=== PATIENT | female | born 1950 | race Caucasian/White ===

== ENCOUNTER → 2021-04-26 13:26 | Outpatient (CLI) | payer MEDICARE, SELFPAY ==
--- NOTE | 2021-04-26 13:47 | US_ITS ---
STUDY: RENAL ULTRASOUND - COMPLETE REASON FOR EXAM: Female, 70 years old. Flank pain and fever TECHNIQUE: Ultrasound evaluation of the kidneys was performed with real-time and static yoo-scale imaging. COMPARISON: None. FINDINGS: RIGHT KIDNEY: Normal location of the right kidney, which is normal in size. The right kidney measures 9.8 x 4.8 x 5.0 cm. There is a normal cortex of the right kidney. The renal cortex measures 1.1 cm. There is no right renal mass or cyst. There are no right renal calculi. There is no right hydronephrosis. DISTAL RIGHT URETER: There is non-visualization of the distal right ureter. There is no demonstrated right ureterovesical junction calculus. There is a visualized right ureteral jet. LEFT KIDNEY: Normal location of the left kidney, which is normal in size. The left kidney measures 10.5 x 4.8 x 5.2 cm. There is a normal cortex of the left kidney. The renal cortex measures 1.3 cm. There is a simple 0.9 cm cyst. There are no left renal calculi. There is no left hydronephrosis. DISTAL LEFT URETER: There is non-visualization of the distal left ureter. There is no demonstrated left ureterovesical junction calculus. There is a visualized left ureteral jet. AORTA: There is no elongation or tortuosity of the abdominal aorta. I.V.C.: The IVC is patent. BLADDER: The bladder is sonographically normal with estimated capacity of 449.19 mL US/Kidney and Bladder IMPRESSION: No suspicious sonographic findings, simple left renal cyst. No specific follow-up needed Electronically Signed: Mike Del Toro MD at 10:49 EDT , Service support ,
== END ==
PROVIDERS: PCP Family Medicine; Referring Provider Urology; Visit Provider Urology
DX: N39.0 Urinary tract infection, site not specified (principal)
CPT/HCPCS: 76770

== ENCOUNTER → 2021-07-16 | Outpatient (CLI) | payer MEDICARE, SELFPAY | END | disposition home or self-care (01) | PROVIDERS: PCP Family Medicine; Referring Provider Urology; Visit Provider Urology | DX: N39.0 Urinary tract infection, site not specified (principal) | CPT/HCPCS: 87086 ==

== ENCOUNTER 2021-07-27 07:04 | Day surgery (SDC) | payer MEDICARE, SELFPAY ==
--- NOTE | 2021-07-26 10:50 | EKG12_ITS ---
Test Reason : PRE OP Blood Pressure : / mmHG Vent. Rate : 057 BPM Atrial Rate : 057 BPM P-R Int : 204 ms QRS Dur : 128 ms QT Int : 432 ms P-R-T Axes : 070 108 048 degrees QTc Int : 420 ms Sinus bradycardia Right bundle branch block Abnormal ECG Confirmed by PHOEBE MCDONOUGH, LAILA ([id number]), film editor supervisor ALEXANDER CASTRO ([id number]) on 07/27/2021 9:26:55 AM Referred By: Maria C Adair Confirmed By:LAILA SANDHU MD
[2021-07-26 11:58] LABS: Hematocrit 39.4 % (37-47); Mean Corpuscular Hgb 31.1 pg (27.0-32.0); Mean Corpuscular Volume 94.3 fL (81-99); Mean Platelet Vol. 10.2 fl (6.2-12.0); Platelet Count 284 K/mm3 (150-450); RBC Distribution Width CV 13.3 % (11.6-14.6); RBC Distribution Width SD 45.5 fl (35.1-43.9); Red Blood Count 4.18 M/mm3 (4.2-5.4); White Blood Count 5.3 K/mm3 (4.4-11.0)
[2021-07-26 12:16] LABS: Anion Gap 4 (5-15); BUN 12 mg/dL (7-18); BUN/Creat Ratio 13.9 RATIO (10-20); Chloride 104 mmol/L (98-107); Creatinine, Serum 0.86 mg/dL (0.55-1.02); EST Glomerular Filtration Rate 69 mL/min (>60); Est Glom Filt Rate - Afr Amer 84 mL/min (>60); Glucose 135 mg/dL (74-106); Potassium 3.9 mmol/L (3.5-5.1); Sodium Level 139 mmol/L (136-145)
[2021-07-26 12:21] LABS: Hemoglobin A1c 6.4 % (3.8-5.6)
[2021-07-27] VITALS (7 sets, daily range): BP systolic 124–157; BP diastolic 67–76; PULSE 57–62; RESP 16; TEMP 36.2–36.7; O2SAT 97–100; BMI 34.3
[2021-07-27] MEDS: Lactated Ringers 1,000 ML 100 ML IV (07:47)
--- NOTE | 2021-07-27 08:17 | PCM.HP.STD ---
HPI - General HPI Narrative BHARATHI PAIGE, is a 70 F who presents for urethral dilation and cystoscopy for evaluation of urinary tract infections and treatment of her urethral stricture. Informed consent was obtained. [facility] Medical History (Updated 07/27/21 @ 08:[address] Maria C Adair MD) Anemia Anxiety Back pain Chest pain CPAP (continuous positive airway pressure) dependence Diabetes Dietary restriction Gastric reflux History of edema History of renal disease History of stress test Hypertension Migraine headache Non-smoker Other urethral stricture, female Rheumatoid arthritis Urinary tract infection Wears glasses Home Medications acetaminophen [Tylenol] 650 mg PO Q6H PRN 07/20/21 [History Last Taken 07/27/21] ascorbic acid (vitamin C) [Vitamin C] 500 mg PO DAILY 07/20/21 [History Last Taken 07/27/21] hydrochlorothiazide 25 mg PO DAILY 07/20/21 [History Last Taken 07/27/21] lactobacillus combination no.4 [Probiotic] 3,000 mmu cells PO DAILY 07/20/21 [History Last Taken 07/27/21] leucovorin calcium 5 mg PO TU 07/20/21 [History Last Taken 07/06/21] loratadine 10 mg PO DAILY 07/20/21 [History Last Taken 07/27/21] methotrexate sodium [Methotrexate (Anti-Rheumatic)] 20 mg PO MO 07/20/21 [History Last Taken 07/05/21] metoprolol tartrate 25 mg PO BID 07/20/21 [History Last Taken 07/27/21] multivitamin 1 cap PO DAILY 07/20/21 [History Last Taken 07/27/21] omeprazole 20 mg PO BID 07/20/21 [History Last Taken 07/27/21] trazodone 50 mg PO QHS 07/20/21 [History Last Taken 07/27/21] vitamin B complex 1 cap PO DAILY 07/20/21 [History Last Taken 07/27/21] Allergy/AdvReac Type Severity Reaction Status Date / Time cephalexin Allergy Hives Verified 07/20/21 14:18 levofloxacin [From Levaquin] Allergy Itching Verified 07/20/21 14:18 oats Allergy Hives Verified 07/20/21 14:18 sucralfate [From Carafate] Allergy Hives Verified 07/20/21 14:18 sulfamethoxazole Allergy Itching Verified 07/20/21 14:18 [From Bactrim] trimethoprim [From Bactrim] Allergy Itching Verified 07/20/21 14:18 ciprofloxacin [From Cipro] AdvReac Diarrhea Verified 07/20/21 14:18 lisinopril [From Zestril] AdvReac COUGH Verified 07/20/21 14:18 Surgical History History of carpal tunnel surgery of right wrist History of esophagogastroduodenoscopy (EGD) History of partial hysterectomy Hx laparoscopic cholecystectomy Hx of colonoscopy Hx of hysterectomy Hx of right knee surgery Social History Smoking Status: Never smoker ROS Constitutional Constitutional: Denies anorexia, change in weight, chills, fatigue, fever(s), frequent falls or weakness Eyes Eyes: Denies change in vision ENT HEENT: Denies abnormal hearing, dizziness or dysphagia Cardiovascular Cardiovascular: Denies abdominal pain, chest pain, dyspnea, nausea or vomiting Respiratory/Chest Respiratory/Chest: Denies change in mental status, cough or dyspnea Gastrointestinal Gastrointestinal: Denies abdominal pain, anorexia, change in bowel habits, dysphagia, vomiting or weight changes Genitourinary Genitourinary: Reports urinary frequency and urinary urgency Musculoskeletal Musculoskeletal: Reports back pain and joint pain Integumentary Integumentary: Denies changing lesions, pruritus or rash Neurologic Neurologic: Denies abnormal movements or abnormal speech Psychiatric Psychiatric: Denies behavioral changes or cognitive impairment Endocrine Endocrinology: Reports systems reviewed and no addt'l complaints, except as documented Hematologic/Lymphatic Hematologic/Lymphatic: Reports systems reviewed and no addt'l complaints, except as documented Allergic/Immunologic Allergic/Immunologic: Reports systems reviewed and no addt'l complaints, except as documented Vital Signs Vital Signs Vital Signs: 07/27/21 07:20 Temperature 97.5 F L Temperature Source Temporal Pulse Rate 58 L Respiratory Rate 16 Respiratory Pattern Normal Blood Pressure 124/70 H Blood Pressure Mean 88 Blood Pressure Source Monitor Blood Pressure Position Sitting Blood Pressure Location Left Arm Pulse Ox 98 Oxygen Delivery Method Room Air Weight Weight: 88 kg Body Mass Index (BMI) 34.3 Physical Exam Const alert, oriented x3 and no apparent distress General Appearance: cooperative, comfortable and well kempt HEENT normocephalic, head/scalp atraumatic, hearing grossly normal bilaterally and moist oral mucous membranes Face and Sinus: face symmetric Nose: external nose normal External Ear: external ears normal Mouth: lips normal Eyes General Eye: normal appearance of both eyes Neck supple General: trachea midline Lymph Lymphatic: no lymphedema noted Chest inspection of chest normal Chest: symmetrical chest wall rise Resp normal respiratory effort, normal air movement, no retractions and no use of accessory muscles Effort and Inspection: able to speak in complete sentences and symmetric chest movement Cardio regular rate and regular rhythm GI soft to palpation, non-tender and non-distended Narrative: Vaginal atrophy, urethral stricture unable to pass catheter Extremity normal to inspection Skin no rashes or lesions noted, no wounds, skin turgor normal, no jaundice, no petechiae and no mottling Neuro oriented x3, CN's II-XII intact bilaterally and moves all extremities Psych mental status grossly normal, thought process normal, cooperative, affect normal and speech normal Results Lab / Micro Data Result Diagrams: 07/26/21 11:13 07/26/21 11:13 Labs: Laboratory Results - last 24 hr 07/26/21 11:13: WBC 5.3, RBC 4.18 L, Hgb 13.0, Hct 39.4, MCV 94.3, MCH 31.1, MCHC 33.0, RDW Std Deviation 45.5 H, RDW Coeff of Regina 13.3, Plt Count 284, MPV 10.2 07/26/21 11:13: Sodium 139, Potassium 3.9, Chloride 104, Carbon Dioxide 31.0, Anion Gap 4 L, BUN 12, Creatinine 0.86, Est GFR (MDRD) Af Amer 84, Est GFR (MDRD) Non-Af 69, BUN/Creatinine Ratio 13.9, Glucose 135 H, Calcium 9.0 07/26/21 11:13: Hemoglobin A1c 6.4 H Micro: Microbiology 07/26/21 11:00 Interface Orders SARS-CoV-2 Antigen (Rapid) - Final Assessment & Plan Assessment/Plan (1) Urinary tract infection: (2) Other urethral stricture, female: PLAN: Proceed with urethral dilation, cystoscopy, possible bladder biopsy under anesthesia. Informed consent was obtained. Urine culture preoperatively is negative. Patient has multiple allergies and is currently taking doxycycline which she will continue after the procedure. Procedure Criteria Type of Procedure Procedure Type: Elective Elective Risks - COVID COVID Risk Discussion: The surgeon/proceduralist and patient have discussed in detail the risk of exposure to and/or potential harm posed by the COVID-19 virus with having a surgery/procedure at this time versus the risk of delaying the surgery/procedure. It is not possible to know either the risk of delaying the surgery or procedure or chance of getting an infection with perfect accuracy, but a joint decision was made between the patient and the surgeon/proceduralist to proceed at this time with the scheduled surgery/procedure as indicated on the consent form.
--- NOTE | 2021-07-27 08:24 | PCM.DC ---
Discharge Instructions Diet Discharge Diet: No restrictions Activity Discharge Activity: Return to Normal Activity May resume sexual activity in: 1 week Dressing / Incision Call your doctor if your incision/area has: Continuous Slow Oozing, Sudden Increased Bleeding, Increased Pain/ Swelling and Foul Smelling Discharge Call your doctor if you observe: Fever of 101 or Higher, Inability to urinate, Inability to have a bowel movement and Uncontrolled pain Follow Up Care Please Follow Up With: Maria C Adair MD When: 1 week, call office for appt Test Results: Test results from this visit will be discussed in further detail at your follow-up appointment, if applicable. Discharge Plan Admission Attending Provider: Maria C Adair Primary Care Provider: Matt Chester Discharge Orders/Prescriptions Prescriptions: New oxycodone-acetaminophen [Percocet] 5-325 mg tablet 1 tab PO Q8H PRN (Reason: pain) 5 Days Qty: 10 RF: 0 phenazopyridine [Pyridium] 200 MG tablet 200 mg PO TID PRN PRN (Reason: Bladder Spasms) 7 Days Qty: 30 RF: 0 Continued acetaminophen [Tylenol] 325 mg Tablet 650 mg PO Q6H PRN (Reason: Pain) RF: 0 trazodone 50 mg Tablet 50 mg PO QHS RF: 0 ascorbic acid (vitamin C) [Vitamin C] 500 mg Tablet 500 mg PO DAILY RF: 0 methotrexate sodium 2.5 mg Tablet 20 mg PO MO RF: 0 omeprazole 20 mg Capsule,Delayed Release(Dr/Ec) 20 mg PO BID RF: 0 leucovorin calcium 5 mg Tablet 5 mg PO TU RF: 0 hydrochlorothiazide 25 mg Tablet 25 mg PO DAILY RF: 0 multivitamin Capsule 1 cap PO DAILY RF: 0 vitamin B complex Capsule 1 cap PO DAILY RF: 0 metoprolol tartrate 25 mg Tablet 25 mg PO BID RF: 0 loratadine 10 mg Capsule 10 mg PO DAILY RF: 0 Probiotic 3 billion cell Capsule 3,000 mmu cells PO DAILY RF: 0 Referrals / Follow Up: Matt Chester MD [Primary Care Provider] - Disposition Disposition (needs filled in before D/C Order can be placed): Home, Self Care
--- NOTE | 2021-07-27 08:27 | OP.PCM_ITS ---
Problems Associated Problem List Diagnoses (1) Other urethral stricture, female: (2) Urinary tract infection: Report of Operation Date of Procedure: 07/27/21 Pre-Operative Diagnosis: Urethral stricture female, urinary tract infections Post-Operative Diagnosis: Same Surgery/Procedure Performed:: Urethral dilation, cystoscopy Surgeon: Maria C Adair Type of Anesthesia: [facility] [place] Specimen's removed: none Estimated Blood Loss (mL): 3cc Description of Procedure: The patient is a 70-year-old female who has been having recurrent urinary tract infections. We were unable to perform a cystoscopy in the office secondary to urethral stricture. She now presents for urethral dilation and cystoscopy under anesthesia. Informed consent was obtained. She had a negative preoperative culture. The patient was taken to the operating room and placed on the operating room table. Anesthesia monitored the head, neck, airway, IV access and vital signs throughout the case. Once anesthesia was appropriate ministered the patient was placed into dorsal lithotomy position was prepped and draped in usual sterile fashion. A lighted jet was inserted into the urethra. The urethra was then systematically dilated starting with [address] the way up to 28 Indonesian sounds without difficulty. At this time the cystoscope was easily inserted through the urethra into the urinary bladder under direct visualization. The bladder mucosa was visualized in its entirety. The ureteral orifices were identified in the area of the trigone. There were no areas of erythema, mass, ulceration or foreign body identified. The urethra was visualized and found to be without evidence of malignancy or abnormality other than the stricture. At this time the patient's bladder was emptied and the case was terminated. The patient was awakened and taken to the recovery room in good condition. There were no complications during this procedure. Grafts/Implants Used: none Complications none Admit VTE Documentation VTE Present on Admission: Yes VTE Mechan Device Prophylaxis: SCD's VTE Pharm Prophylaxis ordered?: No Reason prophylaxis not ordered:: Treatment Not Indicated
[2021-07-27] MEDS: Lidocaine Jelly 2% 20 ML Syringe (URO-JET) 20 APPLIC (08:40)
[2021-07-27 09:15] LABS: Bedside Glucose 144 mg/dL (70-110)
== END 2021-07-27 10:03 | disposition home or self-care (01) ==
LOC: SDC 07:04 → AC 07:04
PROVIDERS: Anesthesiology; PCP Family Medicine; Referring Provider Urology; Visit Provider Urology
PROC: 0T7D8ZZ Dilation of Urethra, Via Natural or Artificial Opening Endoscopic (ICD-10-PCS; CPT 52281; principal; 2021-07-27 08:40)
DX: N35.82 Other urethral stricture, female (principal); Z20.822 Contact with and (suspected) exposure to COVID-19; E11.9 Type 2 diabetes mellitus without complications; I10 Essential (primary) hypertension; M06.9 Rheumatoid arthritis, unspecified; K21.9 Gastro-esophageal reflux disease without esophagitis; Z87.440 Personal history of urinary (tract) infections
CPT/HCPCS: 00910; 52281; 36415; 80048; 82962; 83036; 85027; 87426; 93005; C9803; J7120; J2405